=== PATIENT | female | born 1995 | race Caucasian/White ===

== ENCOUNTER 2018-07-12 15:42 | Inpatient (IN) | payer BC, OTHER ==
[~2018-07-12] VITALS: Ht 162.6 cm; Wt 82.7 kg
[2018-07-12] MEDS ORDERED: MAGNESIUM SULF. PMX 20GM/500ML 500 ML IV SCH (16:25)
[2018-07-12] MEDS ORDERED: BETAMETHASONE 6 MG/ML, 5ML IM SCH (16:30)
[2018-07-12] MEDS ORDERED: MAGNESIUM SULF. PMX 20GM/500ML 500 ML IV ONE (16:34)
[2018-07-12] MEDS: LACTATED RINGERS 1,000 ML IV PRN (16:52)
[2018-07-12] MEDS ORDERED: VANCOMYCIN PER PHARMACY MC PRN (18:00)
[2018-07-12] MEDS ORDERED: PREN1TAB60 PO (18:17)
[2018-07-12] MEDS ORDERED: CLIN150C14 PO (18:20)
[2018-07-12 18:30] LABS: BASOPHILS % (AUTO) 0 % (0-1); EOSINOPHILS # (AUTO) 0.01 x10^3/uL (0-0.4); EOSINOPHILS % (AUTO) 0 % (1-7); LYMPHOCYTES # (AUTO) 1.19 x10^3/uL (1-3.4); LYMPHOCYTES % (AUTO) 9 % (22-44); MD NO; MEAN CORPUSCULAR HEMOGLOBIN 34.4 pg (27.0-34.8); MEAN CORPUSCULAR HGB CONC 34.7 g/dL (32.4-35.8); MEAN CORPUSCULAR VOLUME 99.1 fL (80-100); MEAN PLATELET VOLUME 9.9 fL (7.4-10.4); MONOCYTES # (AUTO) 0.11 x10^3/uL (0.2-0.8); MONOCYTES % (AUTO) 1 % (2-9); NEUTROPHILS # (AUTO) 12.01 x10^3/uL (1.8-6.8); NEUTROPHILS % (AUTO) 90 % (42-75); PLATELET COUNT 219 x10^3/uL (130-400); RED BLOOD COUNT 3.47 x10^6/uL (3.82-5.3); RED CELL DISTRIBUTION WIDTH 12.1 % (9.6-15.2)
[2018-07-12] MEDS ORDERED: VANCOMYCIN 1,600 MG in SODIUM CHLORIDE 0.9% 250 ML IV ONE (18:30)
[2018-07-12] MEDS ORDERED: PHARMACOKINETIC MONITORING MC PRN (18:30)
[2018-07-12] MEDS ORDERED: PHARMACOKINETIC CONSULTATION MC ONE (18:30)
[2018-07-12 18:37] LABS: ALANINE AMINOTRANSFERASE 13 U/L (12-78); ANION GAP 11 mmol/L (5-15); CALCIUM 7.8 mg/dL (8.5-10.1); CHLORIDE 108 mmol/L (98-107); CREATININE 0.57 mg/dL (0.55-1.02)
[2018-07-12 18:40] LABS: ALKALINE PHOSPHATASE 106 U/L (45-117); BILIRUBIN,TOTAL 0.6 mg/dL (0.2-1.0); TOTAL PROTEIN 6.6 g/dL (6.4-8.2)
[2018-07-12 19:14] LABS: AMPHETAMINE SCREEN, URINE Negative (Negative); BARBITURATE SCREEN, URINE Negative (Negative); BENZODIAZEPINE SCREEN, URINE Negative (Negative); CANNABINOID SCREEN, URINE Negative (Negative); COCAINE SCREEN, URINE Negative (Negative); METHADONE SCREEN, URINE Negative (Negative); OPIATE SCREEN, URINE Negative (Negative)
[2018-07-12 19:18] LABS: MICROSCOPIC INDICATED
[2018-07-12 19:24] LABS: CULTURE INDICATED? ORDERED BY PHYSICIAN
[2018-07-12] MEDS ORDERED: D5%-LACTATED RINGERS 1,000 ML IV SCH (20:18)
[2018-07-12] MEDS ORDERED: OXYTOCIN 30U/ 0.9% NaCL 500ML 500 ML IV PRN (20:18)
[2018-07-12] MEDS ORDERED: OXYTOCIN 30U/ 0.9% NaCL 500ML 500 ML IV ONE (20:18)
[2018-07-12] MEDS ORDERED: ALUMINUM/MAG/SIMETHICONE 30 ML UDC PO PRN (20:30)
[2018-07-12] MEDS ORDERED: FENTANYL PF 100 MCG/2ML IVPush PRN (20:30)
[2018-07-12] MEDS ORDERED: FENTANYL PF 100 MCG/2ML IV PRN (20:30)
[2018-07-12] MEDS ORDERED: VANCOMYCIN PMX 1GM/200ML 200 ML IVPB SCH (20:30)
[2018-07-13] MEDS: LACTATED RINGERS 1,000 ML IV PRN ×2 (01:20→09:45)
[2018-07-13] MEDS ORDERED: OXYTOCIN 30U/ 0.9% NaCL 500ML 500 ML ONE (03:43)
[2018-07-13] MEDS ORDERED: MISOPROSTOL 200 MCG TABLET ONE (05:30)
[2018-07-13] MEDS: VANCOMYCIN PMX 1GM/200ML 200 ML IVPB SCH ×2 (06:30→18:01)
[2018-07-13] MEDS ORDERED: ALUMINUM/MAG/SIMETHICONE 30 ML UDC ONE (06:57)
[2018-07-13 07:15] VITALS: BP 108/65
[2018-07-13] MEDS ORDERED: LIDOCAINE 1%, 50ML ONE (08:26)
[2018-07-13] MEDS: NICOTINE 21 MG/24 HR PATCH.TD24 TD SCH (08:56)
[2018-07-13] MEDS ORDERED: FENTANYL PF 500 MCG, BUPIVACAINE/PF 0.5%, 10ML 62.5 ML in SODIUM CHLORIDE 0.9% 177.5 ML EPIDCONT SCH (09:17)
[2018-07-13] MEDS ORDERED: BUPIVACAINE 0.25% ONE (11:21)
[2018-07-13] MEDS ORDERED: FENTANYL/BUPIV./NS/PF 250 ML EPIDCONT SCH (11:24)
[2018-07-13] MEDS ORDERED: EPHEDRINE 50 MG/ML, 1ML IVPush PRN (11:30)
[2018-07-13] MEDS ORDERED: NALOXONE 0.4 MG/ML, 1ML IVPush PRN (11:30)
[2018-07-13] MEDS ORDERED: LACTATED RINGERS 1,000 ML IVBOLUS PRN (11:30)
[2018-07-13] MEDS: LACTATED RINGERS 1,000 ML IV SCH ×2 (11:49→14:29)
[2018-07-14] MEDS ORDERED: METOCLOPRAMIDE 5 MG/ML, 2ML ONE ×2 (00:48→11:23)
[2018-07-14] MEDS: LACTATED RINGERS 1,000 ML IV SCH (02:59)
[2018-07-14] MEDS: VANCOMYCIN PMX 1GM/200ML 200 ML IVPB SCH ×2 (06:05→17:52)
[2018-07-14] MEDS: NICOTINE 21 MG/24 HR PATCH.TD24 TD SCH (09:00)
[2018-07-14] MEDS ORDERED: OXYTOCIN 30U/ 0.9% NaCL 500ML 500 ML ONE (10:48)
[2018-07-14 11:08] VITALS: BP 130/78
[2018-07-14] MEDS ORDERED: SODIUM CITRATE/CITRIC ACID 30 ML UDC ONE (11:23)
[2018-07-14] MEDS ORDERED: BUPIVACAINE 0.25% ONE (15:46)
[2018-07-14] MEDS ORDERED: OXYTOCIN 10 UNITS/ML, 1ML ONE (18:01)
[2018-07-14] MEDS ORDERED: OXYTOCIN 10 UNITS/ML, 1ML IM ONE (18:30)
[2018-07-14] MEDS: OXYTOCIN 30U/ 0.9% NaCL 500ML 500 ML IV SCH (18:41)
[2018-07-14] MEDS ORDERED: HYDROcodone/APAP 5/325 TABLET PO PRN ×2 (19:00)
[2018-07-14] MEDS ORDERED: METHYLERGONOVINE 0.2 MG/ML IM PRN (19:00)
[2018-07-14] MEDS ORDERED: ONDANSETRON 2MG/ML, 2ML IV PRN (19:00)
[2018-07-14] MEDS ORDERED: MISOPROSTOL 200 MCG TABLET PR PRN (19:00)
[2018-07-14] MEDS ORDERED: DOCUSATE 100 MG CAPSULE PO PRN (19:00)
[2018-07-14] MEDS ORDERED: ACETAMINOPHEN 325 MG TABLET PO PRN (19:00)
[2018-07-14 20:30] VITALS: BP 125/86
[2018-07-14] MEDS: IBUPROFEN 600 MG TABLET PO PRN (21:26)
[2018-07-15 00:15] VITALS: BP 103/61
[2018-07-15 02:03] LABS: BASOPHILS # (AUTO) 0.05 x10^3/uL (0-0.1); BASOPHILS % (AUTO) 0 % (0-1); EOSINOPHILS # (AUTO) 0.02 x10^3/uL (0-0.4); EOSINOPHILS % (AUTO) 0 % (1-7); LYMPHOCYTES # (AUTO) 2.19 x10^3/uL (1-3.4); LYMPHOCYTES % (AUTO) 17 % (22-44); MD NO; MEAN CORPUSCULAR HEMOGLOBIN 33.5 pg (27.0-34.8); MEAN CORPUSCULAR HGB CONC 34.2 g/dL (32.4-35.8); MEAN PLATELET VOLUME 9.5 fL (7.4-10.4); MONOCYTES # (AUTO) 1.12 x10^3/uL (0.2-0.8); MONOCYTES % (AUTO) 9 % (2-9); NEUTROPHILS # (AUTO) 9.44 x10^3/uL (1.8-6.8); NEUTROPHILS % (AUTO) 74 % (42-75); PLATELET COUNT 169 x10^3/uL (130-400); RED BLOOD COUNT 2.87 x10^6/uL (3.82-5.3); RED CELL DISTRIBUTION WIDTH 12.2 % (9.6-15.2)
[2018-07-15] MEDS: IBUPROFEN 600 MG TABLET PO PRN ×2 (03:15→09:07)
[2018-07-15 03:17] VITALS: BP 113/73
[2018-07-15] MEDS: OXYTOCIN 30U/ 0.9% NaCL 500ML 500 ML IV SCH ×2 (04:41→14:41)
[2018-07-15 07:45] VITALS: BP 109/74
[2018-07-15] MEDS: NICOTINE 21 MG/24 HR PATCH.TD24 TD SCH (09:00)
[2018-07-15] MEDS: PRENATAL VIT/IRON/FA 1 EACH TABLET PO SCH (09:07)
[2018-07-15 12:45] VITALS: BP 115/75
[2018-07-15 20:15] VITALS: BP 97/64
[2018-07-16] MEDS: OXYTOCIN 30U/ 0.9% NaCL 500ML 500 ML IV SCH ×2 (00:41→10:41)
[2018-07-16] MEDS: IBUPROFEN 600 MG TABLET PO PRN ×2 (03:10→10:56)
[2018-07-16 07:40] VITALS: BP 108/68
[2018-07-16] MEDS ORDERED: IBUP-1222 PO (07:49)
[2018-07-16] MEDS ORDERED: [UNRECOGNIZED DRUG - OTHER] (07:49)
[2018-07-16] MEDS ORDERED: DOCU-131 PO (07:49)
[2018-07-16] MEDS ORDERED: IRON PO (07:50)
[2018-07-16] MEDS ORDERED: FERROUS GLUCONATE 324 MG TABLET PO SCH (08:00)
[2018-07-16] MEDS: NICOTINE 21 MG/24 HR PATCH.TD24 TD SCH (09:00)
[2018-07-16] MEDS: PRENATAL VIT/IRON/FA 1 EACH TABLET PO SCH (10:57)
== END 2018-07-16 17:55 | disposition home or self-care (01) | DRG 774 ==
LOC: LDIP 16:23 → 2NW 07-14 20:17
PROVIDERS: ADMIT Obstetrics & Gynecology Maternal & Fetal Medicine; ATTEND Obstetrics & Gynecology Maternal & Fetal Medicine
PROC: 3E033VJ Introduction of Other Hormone into Peripheral Vein, Percutaneous Approach (ICD-10-PCS; 2018-07-12)
PROC: 0T9B70Z Drainage of Bladder with Drainage Device, Via Natural or Artificial Opening (ICD-10-PCS; 2018-07-12)
PROC: 10E0XZZ Delivery of Products of Conception, External Approach (ICD-10-PCS; principal; 2018-07-14)
PROC: 0UQGXZZ Repair Vagina, External Approach (ICD-10-PCS; 2018-07-14)
PROC: 3E0R3BZ Introduction of Anesthetic Agent into Spinal Canal, Percutaneous Approach (ICD-10-PCS; 2018-07-14)
PROC: 00HU33Z Insertion of Infusion Device into Spinal Canal, Percutaneous Approach (ICD-10-PCS; 2018-07-14)
DX: O42.913 Preterm premature rupture of membranes, unspecified as to length of time between rupture and onset of labor, third trimester (principal); O72.1 Other immediate postpartum hemorrhage; O71.4 Obstetric high vaginal laceration alone; Z37.0 Single live birth; O99.334 Smoking (tobacco) complicating childbirth; Z3A.35 35 weeks gestation of pregnancy; O99.52 Diseases of the respiratory system complicating childbirth; O36.5930 Maternal care for other known or suspected poor fetal growth, third trimester, not applicable or unspecified; J45.909 Unspecified asthma, uncomplicated; F17.210 Nicotine dependence, cigarettes, uncomplicated; O90.81 Anemia of the puerperium; D64.9 Anemia, unspecified; Z88.8 Allergy status to other drugs, medicaments and biological substances; Z88.1 Allergy status to other antibiotic agents; Z91.041 Radiographic dye allergy status
CPT/HCPCS: 36415; J7121; 80053; 80307; 81001; 82565; 84520; 85025; 86850; 86900; 87086; 89060; G0378; J3010; J3370; J3490; J2590; J3475; J7050; J7120; Q0114